=== PATIENT | female | born 1955 | race Caucasian/White ===

== ENCOUNTER 2019-05-18 15:52 | Emergency (ER) | payer OTHER ==
[2019-05-18 16:05] VITALS: BP 144/98; PULSE 80; RESP 20; TEMP 98.1
[2019-05-18] MEDS ORDERED: LIDOCAINE 5% PATCH TOPICAL STA (16:33)
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
== END 2019-05-18 17:31 | disposition home or self-care (01) ==
LOC: EC 15:52
DX: M54.9 Dorsalgia, unspecified (principal); V43.52XA Car driver injured in collision with other type car in traffic accident, initial encounter; Y92.410 Unspecified street and highway as the place of occurrence of the external cause
CPT/HCPCS: 71046; 72100; 99284